=== PATIENT | female | born 1985 | race Caucasian/White ===

== ENCOUNTER 2022-04-18 16:30 | Emergency (ER) | payer OTHER ==
[~2022-04-18] VITALS: Ht 160 cm; Wt 88.5 kg
[2022-04-18 18:11] LABS: HEMATOCRIT 43.2 % (31.2-41.9); MEAN CORPUSCULAR HEMOGLOBIN 31.3 uug (24.7-32.8); MEAN CORPUSCULAR VOLUME 94.6 fL (75.5-95.3); PLATELET COUNT (AUTO) 229 K/uL (179-408)
[2022-04-18 18:20] LABS: CREATININE 0.8 mg/dL (0.6-1.3); MAGNESIUM 2.2 mg/dL (1.8-2.4); POTASSIUM 4.5 mmol/L (3.5-5.1)
[2022-04-18 18:45] LABS: *URINE HCG, QUAL NEGATIVE (NEGATIVE)
[2022-04-18] MEDS ORDERED: MECLIZINE HCL 25 MG TABLET PO ONE (19:15)
--- NOTE | 2022-04-18 19:20 | NUR ---
Report recieved from Franchesca BARBOUR.
[2022-04-18 19:23] LABS: *BILIRUBIN,URIN NEGATIVE (NEGATIVE); *BLOOD, URINE NEGATIVE (NEGATIVE); *CLARITY,URINE CLEAR (CLEAR); *COLOR,URINE YELLOW (YELLOW); *KETONES,URINE NEGATIVE (NEGATIVE); *UROBILINOGEN,URINE 0.2 E.U./dl (NORMAL); LEUKOCYTE ESTERASE ,URINE NEGATIVE (NEGATIVE); NITRITE, URINE NEGATIVE (NEGATIVE); UGLUCOSE NEGATIVE (NEGATIVE)
[2022-04-18] MEDS ORDERED: MECLIZINE HCL 25 MG TABLET ONE (19:37)
[2022-04-18 19:39] LABS: BILIRUBIN,DIRECT 0.1 mg/dL (0.0-0.2); BILIRUBIN,TOTAL 0.3 mg/dL (0.2-1.0); TOTAL PROTEIN, SERUM 7.6 g/dL (6.4-8.2)
[2022-04-18 20:24] LABS: THYROID STIMULATING HORMONE 0.881 mIU/mL (0.358-3.740)
--- NOTE | 2022-04-18 20:30 | NUR ---
Patient ambulated to the bathroom with steady gait. NAD noted.
[2022-04-18] MEDS ORDERED: MECL-159 PO (21:03)
--- NOTE | 2022-04-18 21:07 | NUR ---
Patient discharged to home in stable condition. A/O x4. NAD noted. All belongings with patient. Written and verbal after care instructions given. Patient verbalizes understanding of instructions. Stressed follow up or return to ER for worsening s/s.
[2022-04-18 21:12] VITALS: BP 138/87
== END 2022-04-18 21:07 | disposition home or self-care (01) ==
LOC: ER 16:30
DX: R20.0 Anesthesia of skin (principal); R42 Dizziness and giddiness; I10 Essential (primary) hypertension
CPT/HCPCS: 36415; 70450; 83735; 84443; 84703; 85025; 93005; A4663; J8597